=== PATIENT | female | born 1960 | race Caucasian/White ===

== ENCOUNTER 2018-01-07 05:49 | Day surgery (SDC) | payer OTHER ==
[2018-01-07] MEDS ORDERED: FENTAnyl 50 MCG/ML VIAL (07:57)
[2018-01-07] MEDS ORDERED: MIDAZOLAM 1 MG/ML 2 ML INJ (07:57)
== END 2018-01-07 10:03 | disposition home or self-care (01) ==
LOC: GIL 05:49
DX: K29.50 Unspecified chronic gastritis without bleeding (principal); K21.9 Gastro-esophageal reflux disease without esophagitis; K76.0 Fatty (change of) liver, not elsewhere classified
CPT/HCPCS: 43239; 88305; 88312